=== PATIENT | male | born 1945 | race Caucasian/White ===

== ENCOUNTER → 2017-07-18 | Outpatient (CLI) | payer OTHER | LOC: BHFA 09:15 | PROVIDERS: ATTEND Internal Medicine Cardiovascular Disease | DX: Z13.6 Encounter for screening for cardiovascular disorders (principal) ==

== ENCOUNTER → 2017-08-16 | Outpatient (CLI) | payer OTHER ==
[~2017-08-16] MED LIST: GADOBUTROL 10 ML VIAL IVP ONE
== END ==
LOC: FIMAGING 09:22
PROVIDERS: ATTEND Psychiatry & Neurology Neurology
DX: M50.121 Cervical disc disorder at C4-C5 level with radiculopathy (principal); M46.92 Unspecified inflammatory spondylopathy, cervical region; M48.02 Spinal stenosis, cervical region
CPT/HCPCS: 71552; 72156; A9585

== ENCOUNTER → 2018-03-29 | Outpatient (CLI) | payer OTHER | LOC: FIMAGING 10:55 | PROVIDERS: ATTEND Radiology Diagnostic Radiology | DX: I83.91 Asymptomatic varicose veins of right lower extremity (principal) ==

== ENCOUNTER → 2018-05-26 | Outpatient (CLI) | payer OTHER | LOC: FIMAGING 11:19 | PROVIDERS: ATTEND Family Medicine | DX: M79.89 Other specified soft tissue disorders (principal) ==

== ENCOUNTER 2018-07-28 07:41 | Day surgery (SDC) | payer OTHER ==
[2018-07-28] MEDS ORDERED: MIDAZOLAM 2 MG/2 ML VIAL IVP PRN (07:42)
[2018-07-28] MEDS ORDERED: NALOXONE HCL 0.4 MG/ML INJ IVP PRN (07:42)
[2018-07-28] MEDS ORDERED: FLUMAZENIL 0.5 MG/5 ML MDV IVP PRN (07:42)
[2018-07-28] MEDS ORDERED: ceFAZolin 2 GM/DEXTROSE 100 ML IV ONE (07:42)
[2018-07-28] MEDS ORDERED: fentaNYL 100 MCG/2 ML INJ IVP PRN (07:42)
[2018-07-28] MEDS ORDERED: NS 1,000 ML IV ONE (07:42)
[2018-07-28] MEDS ORDERED: ONDANSETRON 4 MG/2 ML VIAL IVP ONE (07:42)
[2018-07-28] MEDS ORDERED: SODIUM TETRADECYL SULFATE 3% 2 ML VIAL IV ONE (08:06)
[2018-07-28] MEDS ORDERED: LIDO/EPI 1% **for epidural** 30 ML SDV ONE (08:06)
[2018-07-28] MEDS ORDERED: MIDAZOLAM 2 MG/2 ML VIAL ONE (10:29)
[2018-07-28] MEDS ORDERED: fentaNYL 100 MCG/2 ML INJ ONE (10:30)
[2018-07-28] MEDS ORDERED: IBUPROFEN 200 MG TAB PO ONE (10:52)
[2018-07-28] MEDS ORDERED: ONDANSETRON DISINTEGRATING 4 MG TAB PO PRN (10:52)
[2018-07-28] MEDS ORDERED: ONDANSETRON 4 MG/2 ML VIAL IVP PRN (10:52)
[2018-07-28] MEDS ORDERED: HYDROCODONE/APAP 5/325 TAB PO PRN (10:52)
--- NOTE | 2018-07-28 10:55 | PDPROPOC ---
Sedation Plan of Care Sedation Plan of Care: vital signs stable, mental status noted, patient educated of risks, benefits, alternatives, patient can tolerate sedation ASA Classification: ASA 2 Planned drugs: fentanyl, midazolam Mallampati Score: Class 1 Mallampati Reference Image: Patient passed 3-3-2 rule?: Yes
--- NOTE | 2018-07-28 10:59 | PDGENHP ---
History & Physical Chief Complaint: RLE varicose veins History of Present Illness: pain and swelling Pertinent Past, Social, Family History: non smoker Relevant Physical Exam: ropey varicose veins mapped Cardiorespiratory Assessment: CTA, rrr
[2018-07-28] MEDS ORDERED: NS 1,000 ML IV SCH (11:00)
--- NOTE | 2018-07-28 11:17 | PDRADPN ---
Radiology Procedure Note Date of Procedure: 07/28/18 Radiologist: Kendal Xavier Anesthesia: IV Sedation Pre-op Diagnosis: LLE varicose veins Post-op Diagnosis: same Indication: pain and swelling Procedure: laser, ablation, phlebectomy Inf/Abcess present in the surg proc area at time of surgery?: No
[2018-07-28 14:27] VITALS: BP 117/70
== END 2018-07-28 14:35 | disposition home or self-care (01) ==
LOC: FIMAGING 07:41
PROVIDERS: ATTEND Radiology Diagnostic Radiology
PROC: 065P3ZZ Destruction of Right Saphenous Vein, Percutaneous Approach (ICD-10-PCS; principal; 2018-07-28)
PROC: 065Q3ZZ Destruction of Left Saphenous Vein, Percutaneous Approach (ICD-10-PCS; principal; 2018-07-28)
PROC: 3E033TZ Introduction of Destructive Agent into Peripheral Vein, Percutaneous Approach (ICD-10-PCS; principal; 2018-07-28)
DX: I83.811 Varicose veins of right lower extremity with pain (principal); I82.813 Embolism and thrombosis of superficial veins of lower extremities, bilateral; R22.43 Localized swelling, mass and lump, lower limb, bilateral
CPT/HCPCS: J0690; J2250; J2310; J2405; J3010

== ENCOUNTER → 2018-08-17 | Outpatient (CLI) | payer OTHER | LOC: FIMAGING 16:27 ==